=== PATIENT | female | born 1985 | race African-American/Black ===

== ENCOUNTER 2018-08-12 18:49 | Observation (INO) | payer OTHER ==
[~2018-08-12] VITALS: Ht 172.7 cm; Wt 62.0 kg
[~2018-08-12 18:49] MED LIST: NITR-58 PO; PHEN-537 PO
[2018-08-12] MEDS ORDERED: HYDROCODONE/APAP (5/325) TAB PO PRN (19:00)
[2018-08-12] MEDS ORDERED: NACL 0.9% 3 ML SYG IV SCH (19:00)
[2018-08-12] MEDS ORDERED: morphine 2 MG INJ IV PRN (19:00)
[2018-08-12] MEDS ORDERED: ONDANSETRON 4 MG INJ IV PRN (19:00)
[2018-08-12] MEDS ORDERED: ACETAMINOPHEN 325 MG TAB PO PRN (19:00)
--- NOTE | 2018-08-12 19:07 | ERD ---
ER Documentation Chief Complaint Chief Complaint HPI This is a 33-year-old female who presents as a transfer from [facility] for bullous pemphigoid, which is been going on for 1 week, PMD has been treating her as an outpatient with hydrocortisone, Pepcid, prednisone, Benadryl and permethrin. She has not had a fever, no shortness of breath, ROS All systems reviewed and are negative except as per history of present illness. Medications Home Meds Active Scripts Phenazopyridine Hcl* (Pyridium*) 100 Mg Tab, 100 MG PO TID PRN for URINARY PAIN, #8 TAB Prov:DIANA FONTANEZ NP 03/05/16 Nitrofurantoin Monohyd Macrocr* (Macrobid*) 100 Mg Capsr, 100 MG PO BID for 5 Days, CAP Prov:DIANA FONTANEZ NP 03/05/16 Allergies Allergies: Coded Allergies: No Known Allergy (Unverified , 03/05/16) PMhx/Soc History of Surgery: No Anesthesia Reaction: No Hx Neurological Disorder: No Hx Respiratory Disorders: Yes (ASTHMA) Hx Cardiac Disorders: No Hx Psychiatric Problems: No Hx Miscellaneous Medical Probl: Yes Hx Alcohol Use: Yes Hx Substance Use: No Hx Tobacco Use: Yes Physical Exam Physical Exam Const: No acute distress Head: Atraumatic Eyes: Normal Conjunctiva ENT: Normal External Ears, Nose and Mouth. Neck: Full range of motion. No meningismus. Resp: Clear to auscultation bilaterally Cardio: Regular rate and rhythm, no murmurs Abd: Soft, non tender, non distended. Normal bowel sounds Skin: Multiple areas of peeling noted over chest and back, as well as the upper extremities. Back: No midline or flank tenderness Ext: No cyanosis, or edema Neur: Awake and alert Psych: Normal Mood and Affect Procedures/MDM This is a 33-year-old female presents as a transfer for admission for bullous pemphigoid, patient arrives afebrile and nontoxic-appearing, she received a dose of steroids at about 8:30 AM. Chem panel was reviewed overall unremarkable with sodium 139, potassium 4, chloride 103, CO2 27, BUN 16, creatinine 1.72, glucose 97, LFTs were all unremarkable. Her CBC showed: White count 7.88 hemoglobin 12.3, hematocrit 86.1 platelet count 318., Urinalysis was negative. Patient will be admitted to Dr. Calixto. Departure Diagnosis: Primary Impression: Rash Additional Impression: Bullous pemphigoid Condition: Stable KODY MIJARES MD Aug 12, 2018 19:07
[2018-08-12] MEDS ORDERED: DIPHENHYDRAMINE 50 MG INJ IV PRN (19:30)
[2018-08-12 22:12] VITALS: Ht 172.7 cm; Wt 62.0 kg
--- NOTE | 2018-08-12 22:12 | NUR ---
PATIENT ARRIVED TO THE UNIT AT THIS TIME VIA GURNEY . PATIENT ALERT AND ORIENTED X 4 . V/S STABLE . DENIES ANY PAIN / DISCOMFORT AT THIS TIME . ORIENTED PATIENT TO THE ENVIRONMENT . CALL LIGHTS WITHIN REACH . BED IN LOW POSITION . INSTRUCTED PATIENT TO USE CALL LIGHTS FOR ASSISTANCE . PATIENT VERBALIZED UNDERSTANDING . SKIN ASSESSMENT AND PHOTOS TAKEN PER PROTOCOL. ADMISSION ORDERS NOTED AND CARRIED OUT . WILL CONTINUE TO MONITOR .
[2018-08-12 22:30] VITALS: BP 114/62; PULSE 70; RESP 18
[2018-08-12] MEDS: FAMOTIDINE 20 MG TAB PO SCH (22:38)
--- NOTE | 2018-08-12 23:56 | HP ---
Date/Time of Note Date/Time of Note DATE: 08/12/18 TIME: 23:56 Assessment/Plan VTE Prophylaxis SCD applied (from Nsg): Yes Pharmacological prophylaxis: NA/contraindicated Pharm contraindication: low risk/ambulating Lines/Catheters IV Catheter Type (from Nrsg): Saline Lock Urinary Cath still in place: No Assessment/Plan Hospital Course This is a 33-year-old female being admitted to the [facility] floor for: #1 diffuse maculopapular rash: Differential diagnosis: Drug reaction versus scabies versus TEN versus other. This possibly could be a reaction to ciprofloxacin, at the current time I put this on her allergy list. Labs appear unremarkable to current time, will check a urinalysis and check for urine eosinophils. ESR is within normal values, CRP is slightly elevated 1.5. Will treat with high-dose Solu-Medrol 1000 mg IV times 3 days, topical steroids. Await further blood work results. Monitor closely for any mucosal involvement in which case he likely would be prudent for the patient be transferred to higher level of care where she did have a formal dermatologic evaluation. I did speak with the briefcase sewer through [facility] who stated that a referral had apparently been generated for dermatology however the patient had no knowledge of this. I do feel she will benefit from a dermatologic evaluation in which case we will need to see if we can obtain one here and if not she may need to be transferred to a different facility. Patient though it does appear stable at the current time. PRN Benadryl and famotidine #2 normocytic anemia: No signs of bleeding at the current time, follow-up with outpatient PCP #3 DVT GI prophylaxis: SCDs, famotidine Further treatment strategy will be implemented as per the clinical course. Result Diagram: 08/12/18214708/12/182147 Results 24hrs Laboratory Tests Test 08/12/18 21:45 08/12/18 21:48 Erythrocyte Sedimentation Rate 12 White Blood Count 6.0 Red Blood Count 4.25 Hemoglobin 11.7 L Hematocrit 36.5 L Mean Corpuscular Volume 85.9 Mean Corpuscular Hemoglobin 27.5 L Mean Corpuscular Hemoglobin Concent 32.1 Red Cell Distribution Width 13.6 Platelet Count 332 Mean Platelet Volume 9.3 Immature Granulocytes % 0.300 Neutrophils % 86.4 H Lymphocytes % 10.4 L Monocytes % 2.7 Eosinophils % 0.0 Basophils % 0.2 Nucleated Red Blood Cells % 0.0 Immature Granulocytes # 0.020 Neutrophils # 5.2 Lymphocytes # 0.6 L Monocytes # 0.2 L Eosinophils # 0.0 Basophils # 0.0 Nucleated Red Blood Cells # 0.0 Sodium Level 139 Potassium Level 4.6 Chloride Level 101 Carbon Dioxide Level 26 Anion Gap 12 Blood Urea Nitrogen 11 Creatinine 0.51 Est Glomerular Filtrat Rate mL/min > 60 Glucose Level 122 Calcium Level 9.6 Total Bilirubin 0.0 L Direct Bilirubin 0.00 Indirect Bilirubin 0.0 Aspartate Amino Transf (AST/SGOT) 24 Alanine Aminotransferase (ALT/SGPT) 12 L Alkaline Phosphatase 50 C-Reactive Protein 1.5 H Total Protein 8.2 H Albumin 4.5 Globulin 3.70 H Albumin/Globulin Ratio 1.21 HPI/ROS Admit Date/Time Admit Date/Time Aug 12, 2018 at 18:58 Hx of Present Illness Rash times 1 week worsening This is a 33-year-old female with no past medical history who originally presented to [facility] with a skin eruption all over her body. Patient was subsequently transferred to [facility] secondary insurance purposes. Patient reports that approximately 1 week ago she all of a sudden developed a rash around her torso and her fingers. The rash started out as pinkish lesions and then became purple in various sizes and it was extremely itchy. She went to see urgent care/primary care physician who thought it was scabies and patient was given a treatment of permethrin. The rash continued to spread and get worse and she again saw medical advice and received another treatment of permethrin followed by prednisone Benadryl and famotidine. On approximately she started noticing that the rash ended up going all over her body. She denies any bleeding or any sloughing of the skin. Denies any fevers chest pain or shortness of breath or joint pains. Today at the transfer facility she did receive a dose of IV steroids which she does state he has helped with her itching. She does report using tampons however at the current time she is not using any. She does live with her partner he does not have any of the similar symptoms or rash. She has only been with him over the last 2 years. She denies any vaginal discharge or dysuria. No recent travel. No recent contact with animals. She did move to a new apartment over the last month or 2 and she reports that it is clean. She does report that approximately 2 weeks ago she was being treated with ciprofloxacin for urinary tract infection. Allergies: Possibly ciprofloxacin Medications: Permethrin, prednisone, Benadryl, famotidine ROS Const: As per HPI Eyes : No pain discharge or redness or change in visual acuity ENT: No pain, sore throat, congestion, congestion, dysphagia or discharge Respiratory: No shortness of breath, cough, sputum, wheezing, or pleuritic pain Cardiovascular: No chest pain, palpitation, PND, or edema GI : no change in appetite, abdominal pain, nausea, vomiting, diarrhea, constipation, or change in the color his stool Genitourinary: No dysuria, hematuria, flank pain , discharge or CVA tenderness Musculoskeletal: No joint pain, back pain, neck pain, restricted range of motion in neck or joints Skin: As per HPI Neuro: No headache, dizziness, syncope, seizure, focal weakness Endocrine: No polyuria, polydipsia, temperature intolerance Psych: No hallucination, depression, anxiety or suicidal ideation PMH/Family/Social Past Medical History Medical History: no pertinent history Medications Current Medications IV Flush (NS 3 ml) 3 ml PER PROTOCOL IV ; Start 08/12/18 at 19:00 Ondansetron HCl (Zofran Inj) 4 mg Q6H PRN IV NAUSEA/VOMITING; Start 08/12/18 at 19:00 Acetaminophen (Tylenol Tab) 650 mg Q6H PRN PO .PAIN 1-3 OR TEMP; Start 08/12/18 at 19:00 Acetaminophen/ Hydrocodone Bitart (Bonita (5/325)) 1 tab Q6H PRN PO .MOD PAIN 4- 6; Start 08/12/18 at 19:00 Morphine Sulfate (morphine) 2 mg Q4H PRN IV .SEVERE PAIN 7-10; Start 08/12/18 at 19:00 Famotidine (Pepcid) 20 mg Q12 PO Last administered on 08/12/18at 22:38; Admin Dose 20 MG; Start 08/12/18 at 21:00 Diphenhydramine HCl (Benadryl) 25 mg Q6H PRN IV itching; Start 08/12/18 at 19:30 Clobetasol Propionate (Temovate 0.05% Cr) 1 applic BID TOP ; Start 08/12/18 at 21:00 Methylprednisolone Sodium Succinate 1000 mg/Dextrose 50 ml @ 100 mls/hr DAILY IVPB ; Start 08/13/18 at 09:00; Stop 08/16/18 at 08:59 Coded Allergies: ciprofloxacin (Verified Allergy, Severe, 08/12/18) Past Surgical History Past Surgical Hx: no surgical history Family History Significant Family History: no pertinent family hx Social History Alcohol Use: none Smoking Status: Never smoker Drug Use: none Exam/Review of Systems Vital Signs Vitals Vital Signs Date Temp Pulse Resp B/P (MAP) Pulse Ox O2 O2 Flow FiO2 Time Delivery Rate 08/12/18 66 19 113/64 100 Room Air 21:50 (80) 08/12/18 99.0 19:00 Exam Exam General: Patient is a pleasant female currently sitting upright in bed in no acute distress HEENT: Atraumatic, normocephalic. The pupils are equal, round and reactive. Extraocular motor are intact, no oral lesions noted Neck: Supple with full range of motion. No rigidity or meningismus Chest: Nontender Lungs: Clear to auscultation bilaterally no crackles rales or wheezing Heart: Normal S1-S2, Regular rhythm and rate. No murmur, S3, or S4 Abdomen: Soft , nontender, nondistended , bowel sounds are present. No guarding no rebound tenderness , No masses or organomegaly. No costovertebral temporal angle mass Extremities: Normal to inspection, no edema no cyanosis Skin: Diffuse maculopapular pinkish purple rash of varying size all over the patient's body. No mucosal involvement noted. No sloughing of the skin. No bleeding noted. Genitourinary: Deferred however patient states that she has not noticed any lesions in the vaginal area. Neurologic: Normal mental status, speech normal, cranial nerves II through XII are intact, motor and sensory are intact, no focal weakness YESSI VALENTINO Aug 12, 2018 23:56
[2018-08-12] MEDS: CLOBETASOL 0.05% 15 GM CR TOP SCH (23:59)
[2018-08-13 02:00] VITALS: BP 106/60; PULSE 69; RESP 18
[2018-08-13] MEDS: FAMOTIDINE 20 MG TAB PO SCH (08:13)
[2018-08-13 08:35] VITALS: BP 103/70; PULSE 75; RESP 18
[2018-08-13] MEDS ORDERED: METHYLPRED. NA SUCC 1,000 MG in DEXTROSE 5% 50 ML IVPB SCH (09:00)
[2018-08-13] MEDS: CLOBETASOL 0.05% 15 GM CR TOP SCH (09:00)
--- NOTE | 2018-08-13 10:53 | PDOCDIS ---
Discharge Instructions CONDITION [id number] Patient Condition: [id number] Stable HOME CARE INSTRUCTIONS: [id number] Diet Instructions: [id number] Regular FOLLOW UP/APPOINTMENTS Follow-up Plan We have faxed authorization for outpatient dermatology follow-up to your insurance. Please follow-up with Dr. Shine's office in next 24-48 hours. If you see rash is getting worse with other symptoms, please go to a tertiary hospital ER like [facility] where they have inpatient dermatology speciality available. [id number] [facility] [address] [place] [id number] Office Follow-up with primary care physician in 1 week WINSTON ROD NP Aug 13, 2018 10:53
[2018-08-13] MEDS ORDERED: BEN25 PO (11:00)
[2018-08-13] MEDS ORDERED: FAMO20TA18 PO (11:00)
[2018-08-13] MEDS ORDERED: CLOT15CR6 TOP (11:00)
--- NOTE | 2018-08-13 11:11 | DS ---
Date/Time of Note Date/Time of Note DATE: 08/13/18 TIME: 11:09 Discharge Summary Admission/Discharge Info Admit Date/Time Aug 12, 2018 at 18:58 Discharge Date/Time Discharge Diagnosis 1. Diffuse maculopapular rash, unknown etiology. 2. Mild chronic anemia. Patient Condition: Stable Consults (skin biopsy) Hospital Course 33-year-old female with no significant past medical history other than recurrent Shelley UTI, presented to outside hospital with sudden onset of rashes started as a pimple-like red raised lesions on her dorsal toes and fingers which then suddenly ruptured to all over the body except face. Patient was evaluated at an urgent care center and was treated with permethrin, steroids, Benadryl and Pepcid. Apparently, her symptoms got worse and ended up been spreading 90% of the body for which she went to outside hospital emergency room where she received IV steroids and Benadryl and patient was then transferred to [facility] due to insurance capitation. Unfortunately, we do not have a body corporate manager available to see patient in-house. Patient received high-dose of IV Solu-Medrol at [facility]. Her rashes did not show any improvement. Patient was receiving Benadryl for itching. For the least, we have ordered a skin biopsy (4mm punch biopsy) at [facility] with our surgery colleague. I also ordered a varicella IgG/IgM. I also spoke with a body corporate manager Dr. Shine who kindly a greed to see patient in his clinic for which I had instructed our director case to fax authorization to her IPA. Will defer any antibiotics or antiviral at this time since diagnosis is uncertain. I communicated this to the patient and patient verbalized instructions. At this time, her rashes remain intact with no evidence of bleeding and remains at baseline. She is also feeling comfortable and wanting to be discharged with a follow-up dermatology clinic. As such, we will discharge patient on combination clotrimazole/betamethasone cream, prednisone and Benadryl for itching. Defer systemic steroid to body corporate manager if indicated. I have also instructed the patient and family to seek medical attention at a tertiary care center where they have dermatology inpatient service available in the event that if the rashes get worse before she get to a body corporate manager office. Approximately 60 minutes was spent on coordinating the discharge on this patient. Patient was seen in collaboration with . Home Meds Active Scripts Clotrimazole-Betamethasone Diprop (Clotrimazole-Betamethasone Diprop) 15 Gm Cream.gm., 1 APPLIC TOP BID, #1 TUB Prov:ROD,WINSTON V[employer] REPAIRER 08/13/18 Diphenhydramine Hcl* (Benadryl*) 25 Mg Cap, 25 MG PO Q6H PRN for ITCHING, #30 CAP Prov:ROD,WINSTON V[employer]SEM[employer] REPAIRER 08/13/18 Famotidine* (Famotidine*) 20 Mg Tablet, 20 MG PO Q12, #60 TAB Prov:ROD,WINSTON V. [employer]SEM[employer] REPAIRER 08/13/18 Phenazopyridine Hcl* (Pyridium*) 100 Mg Tab, 100 MG PO TID PRN for URINARY PAIN, #8 TAB Prov:DIANA FONTANEZ NP 03/05/16 Nitrofurantoin Monohyd Macrocr* (Macrobid*) 100 Mg Capsr, 100 MG PO BID for 5 Days, CAP Prov:DIANA FONTANEZ NP 03/05/16 Follow-up Plan We have faxed authorization for outpatient dermatology follow-up to your insurance. Please follow-up with Dr. Shine's office in next 24-48 hours. If you see rash is getting worse with other symptoms, please go to a tertiary hospital ER like [facility] where they have inpatient dermatology speciality available. [id number] [facility] [address] [place], [place] [id number] Office Follow-up with primary care physician in 1 week Primary Care Provider Not On Staff Doctor Pending Labs Laboratory Tests Test 08/12/18 21:45 08/12/18 21:48 08/13/18 04:54 08/13/18 07:30 Erythrocyte 12 mm/Hr (0-20) Sedimentation Rate White Blood 6.0 10.1 Count 10^3/ul (4.8-1 10^3/ul (4.8-1 0.8) 0.8) Red Blood 4.25 4.06 Count 10^6/ul (4.20- 10^6/ul (4.20- 5.40) 5.40) Hemoglobin 11.7 11.3 g/dl (12.0-16. g/dl (12.0-16. 0) 0) Hematocrit 36.5 34.6 % (37.0-47.0) % (37.0-47.0) Mean 85.9 85.2 Corpuscular fl (82.0-101.0 fl (82.0-101.0 Volume ) ) Mean 27.5 27.8 Corpuscular pg (29.0-33.0) pg (29.0-33.0) Hemoglobin Mean 32.1 32.7 Corpuscular g/dl (32.0-37. g/dl (32.0-37. Hemoglobin Conc 0) 0) ent Red Cell 13.6 13.5 Distribution % (11.5-14.5) % (11.5-14.5) Width Platelet Count 332 308 10^3/UL (140-4 10^3/UL (140-4 15) 15) Mean Platelet 9.3 9.5 Volume fl (7.4-10.4) fl (7.4-10.4) Immature 0.300 0.500 Granulocytes % % (0.001-0.429 % (0.001-0.429 ) ) Neutrophils % 86.4 74.4 % (39.0-77.0) % (39.0-77.0) Lymphocytes % 10.4 16.1 % (15.0-51.0) % (15.0-51.0) Monocytes % 2.7 7.8 % (0.0-11.0) % (0.0-11.0) Eosinophils % 0.0 1.0 % (0.0-7.0) % (0.0-7.0) Basophils % 0.2 0.2 % (0.0-2.0) % (0.0-2.0) Nucleated Red 0.0 0.0 Blood Cells % /100WBC (0.0-0 /100WBC (0.0-0 .0) .0) Immature 0.020 0.050 Granulocytes # 10^3/ul (0.0-0 10^3/ul (0.0-0 .031) .031) Neutrophils # 5.2 7.5 10^3/ul (1.6-7 10^3/ul (1.6-7 .5) .5) Lymphocytes # 0.6 1.6 10^3/ul (0.8-2 10^3/ul (0.8-2 .9) .9) Monocytes # 0.2 0.8 10^3/ul (0.3-0 10^3/ul (0.3-0 .9) .9) Eosinophils # 0.0 0.1 10^3/ul (0.0-0 10^3/ul (0.0-0 .5) .5) Basophils # 0.0 0.0 10^3/ul (0.0-0 10^3/ul (0.0-0 .1) .1) Nucleated Red 0.0 0.0 Blood Cells # 10^3/ul (0.0-0 10^3/ul (0.0-0 .0) .0) Sodium Level 139 138 mmol/L (135-14 mmol/L (135-14 4) 4) Potassium 4.6 3.9 Level mmol/L (3.5-5. mmol/L (3.5-5. 1) 1) Chloride Level 101 102 mmol/L (97-110 mmol/L (97-110 ) ) Carbon Dioxide 26 26 Level mmol/L (21-31) mmol/L (21-31) Anion Gap 12 (5-13) 10 (5-13) Blood Urea 11 13 Nitrogen mg/dl (7-20) mg/dl (7-20) Creatinine 0.51 0.52 mg/dl (0.44-1. mg/dl (0.44-1. 00) 00) Est Glomerular > 60 > 60 Filtrat mL/min (>60) mL/min (>60) Rate mL/min Glucose Level 122 82 mg/dl (70-220) mg/dl (70-220) Calcium Level 9.6 9.6 mg/dl (8.4-10. mg/dl (8.4-10. 2) 2) Total 0.0 0.0 Bilirubin mg/dl (0.2-1.3 mg/dl (0.2-1.3 ) ) Direct 0.00 0.00 Bilirubin mg/dl (0.00-0. mg/dl (0.00-0. 20) 20) Indirect 0.0 0.0 Bilirubin mg/dl (0-1.1) mg/dl (0-1.1) Aspartate Amino 24 22 Transf (AST/SGO IU/L (15-46) IU/L (15-46) T) Alanine 12 17 Aminotransferas IU/L (13-69) IU/L (13-69) e (ALT/SGPT) Alkaline 50 47 Phosphatase IU/L (42-121) IU/L (42-121) C-Reactive 1.5 Protein mg/dl (0.0-0.9 ) Total Protein 8.2 7.4 g/dl (6.1-8.1) g/dl (6.1-8.1) Albumin 4.5 4.0 g/dl (3.3-4.9) g/dl (3.3-4.9) Globulin 3.70 3.40 g/dl (1.3-3.2) g/dl (1.3-3.2) Albumin/Globuli 1.21 1.17 n Ratio Serum HCG, NEGATIVE (NEGA Qualitative TIVE) Magnesium 2.2 Level mg/dl (1.7-2.5 ) Urine Color YELLOW (YELLOW ) Urine Clarity CLEAR (CLEAR) Urine pH 6.0 (5.0-9.0) Urine Specific 1.025 (1.003-1 [place] .030) Urine Ketones NEGATIVE mg/dL (NEGATIV E) Urine Nitrite NEGATIVE mg/dL (NEGATIV E) Urine NEGATIVE Bilirubin mg/dL (NEGATIV E) Urine NEGATIVE Urobilinogen mg/dL (NEGATIV E) Urine Leukocyte NEGATIVE Adrienne/u Esterase l Urine 0.0 % (0-1.9) Eosinophils % Urine NEGATIVE Hemoglobin mg/dL (NEGATIV E) Urine Glucose NEGATIVE mg/dL (NEGATIV E) Urine Total NEGATIVE Protein mg/dl (NEGATIV E) WINSTON ROD NP Aug 13, 2018 11:11
--- NOTE | 2018-08-13 11:15 | NUR ---
REPORT GIVEN TO MARTINE.
--- NOTE | 2018-08-13 11:23 | NUR ---
CM CONSULT FOR DERMATOLOGY UP. ORDER FAXED TO GHADA LOPEZ DC PATENT AGENT [phone] FOR AUTHORIZATION, SPOKE TO GHADA, AUTHORIZATION WILL BE FAXED TO DR. WASHINGTON'S OFFICE. FAXED TO DR. WASHINGTON'S OFFICE CONTACT LENS BLOCKER AND CUTTER CONTRACTED WITH JOHN [phone] SPOKE TO JAIRO NOTIFIED HER AUTHORIZATION REQUEST FAXED TO JAIRO URRUTIA WILL CALL PATIENT WHEN SHE GET THE AUTHORIZATION FOR APPOINTMENT. SPOKE TO PATIENT ALERT AND ORIENTED , PROVIDED HER TEL # OF DR. WASHINGTON AND TO CALL TOMORROW 08/14/18 TO UP APPOINTMENT. Addendum: 08/13/18 at 1133 by SHIVAM ARAUZ CM Amended: Links added.
[2018-08-13] MEDS ORDERED: LIDOCAINE 2%/EPI (MDV) 20ML INJ INJ ONE (12:30)
--- NOTE | 2018-08-13 12:37 | CONS ---
Assessment/Plan Assessment/Plan Assessment/Plan (Daily) 1. Maculovesicular rash of unknown etiology: med induced vs new skin oil vs other - punch biopsy -local care -fu w dermatology as outpatient 2. Itching -antipruritics as needed (orals, topical) 3. Hypochromic anemia: -monitor and tx as needed -further workup per pcp Thank you. Patient seen and examined in collaboration with Dr. Augustine Cuenca. Consultation Date/Type/Reason Admit Date/Time Aug 12, 2018 at 18:58 Date of Consultation: Aug 13, 2018 Type of Consult surgical Reason for Consultation diffuse rash Requesting Provider: WINSTON ROD NP Date/Time of Note DATE: 08/13/18 TIME: 12:09 Hx of Present Illness Melissa Frank is a 33 yo woman with past medical history of right second toe surgery, who presented to the hospital with complaints of diffuse maculovesicular rash that began approximately 1 week ago. Initially, the rash began as small, pink and pinpoint on her hands and torso. She then sought care in urgent care, was treated to scabies and given prednisolone. The rash then spread to her legs, arms and back. She then saw her pcp who once again gave her scabies treatment and additional steroids. She finally sought care in the ED. Associated symptoms include chills. She reports using a new apricot oil and having recently finished ciprofloxacin treatment for uti 1 week prior to rash. She denies any other new lotions, detergents, perfumes. She denies fevers, congested cough, vomiting, diarrhea, sz. Dermatology has agreed to see her as an outpatient, however they are requesting a skin biopsy. Gen surgery was asked for biopsy. 12 point ros was performed and is negative except as stated in hpi. Past Medical History Medical History: no pertinent history Home Meds Active Scripts Clotrimazole-Betamethasone Diprop (Clotrimazole-Betamethasone Diprop) 15 Gm C ream.gm., 1 APPLIC TOP BID, #1 TUB Prov:WINSTON ROD V. [employer] 08/13/18 Diphenhydramine Hcl* (Benadryl*) 25 Mg Cap, 25 MG PO Q6H PRN for ITCHING, #30 CAP Prov:WINSTON ROD V. [employer] 08/13/18 Famotidine* (Famotidine*) 20 Mg Tablet, 20 MG PO Q12, #60 TAB Prov:WINSTON ROD V. [employer] 08/13/18 Phenazopyridine Hcl* (Pyridium*) 100 Mg Tab, 100 MG PO TID PRN for URINARY PAIN, #8 TAB Prov:DIANA FONTANEZVicki [employer] 03/05/16 Nitrofurantoin Monohyd Macrocr* (Macrobid*) 100 Mg Capsr, 100 MG PO BID for 5 Days, CAP Prov:DIANA FONTANEZ Sean [employer] 03/05/16 Medications Current Medications IV Flush (NS 3 ml) 3 ml PER PROTOCOL IV ; Start 08/12/18 at 19:00 Ondansetron HCl (Zofran Inj) 4 mg Q6H PRN IV NAUSEA/VOMITING; Start 08/12/18 at 19:00 Acetaminophen (Tylenol Tab) 650 mg Q6H PRN PO .PAIN 1-3 OR TEMP; Start 08/12/18 at 19:00 Acetaminophen/ Hydrocodone Bitart (Oliver (5/325)) 1 tab Q6H PRN PO .MOD PAIN 4- 6; Start 08/12/18 at 19:00 Morphine Sulfate (morphine) 2 mg Q4H PRN IV .SEVERE PAIN 7-10; Start 08/12/18 at 19:00 Famotidine (Pepcid) 20 mg Q12 PO Last administered on 08/13/18at 08:13; Admin Dose 20 MG; Start 08/12/18 at 21:00 Diphenhydramine HCl (Benadryl) 25 mg Q6H PRN IV itching; Start 08/12/18 at 19:30 Clobetasol Propionate (Temovate 0.05% Cr) 1 applic BID TOP Last administered on 08/13/18at 09:00; Admin Dose 1 APPLIC; Start 08/12/18 at 21:00 Methylprednisolone Sodium Succinate 1000 mg/Dextrose 50 ml @ 100 mls/hr DAILY IVPB Last administered on 08/13/18at 11:04; Admin Dose 100 MLS/HR; Start 08/13/18 at 09:00; Stop 08/16/18 at 08:59 Allergies: Coded Allergies: ciprofloxacin (Verified Allergy, Severe, 08/12/18) Past Surgical History as above Social History Alcohol Use: none Smoking Status: Never smoker Drug Use: none Exam/Review of Systems Exam Vitals Vital Signs Date Temp Pulse Resp B/P (MAP) Pulse Ox O2 O2 Flow FiO2 Time Delivery Rate 08/13/18 98.1 75 18 103/70 97 Room Air 08:35 (81) Intake and Output 08/12/18 08/12/18 08/13/18 1515:00 23:00 07:00 IntakeIntake Total 250 ml BalanceBalance 250 ml Constitutional: alert, oriented, well developed Psych: nl mood/affect Head: normocephalic, atraumatic Eyes: nl conjunctiva, EOMI, nl lids, nl sclera ENMT: nl external ears & nose, nl lips & teeth, nl nasal mucosa & septum, mucosa pink and moist Neck: supple, non-tender; No jvd Respiratory: normal air movement; No congested cough, No labored breathing Cardiovascular: regular rate and rhythm, nl pulses; No edema Gastrointestinal: soft, non-tender; No distended Genitourinary - Female: nl external genitalia Musculoskeletal: nl extremities to inspection, nl gait and stance Extremities: normal pulses Neurological: nl mental status, nl speech, nl strength Skin: rash or lesions (maculovesicular rash, some open areas, min jaime-lesion erythema) Results Result Diagram: 08/13/18 0454 08/13/18 0454 Results 24hrs Laboratory Tests Test 08/12/18 21:45 08/12/18 21:48 08/13/18 04:54 08/13/18 07:30 Erythrocyte 12 Sedimentation Rate White Blood Count 6.0 10.1 # Red Blood Count 4.25 4.06 L Hemoglobin 11.7 L 11.3 L Hematocrit 36.5 L 34.6 L Mean Corpuscular 85.9 85.2 Volume Mean Corpuscular 27.5 L 27.8 L Hemoglobin Mean Corpuscular 32.1 32.7 Hemoglobin Concent Red Cell 13.6 13.5 Distribution Width Platelet Count 332 308 Mean Platelet Volume 9.3 9.5 Immature 0.300 0.500 H Granulocytes % Neutrophils % 86.4 H 74.4 Lymphocytes % 10.4 L 16.1 Monocytes % 2.7 7.8 Eosinophils % 0.0 1.0 Basophils % 0.2 0.2 Nucleated Red Blood 0.0 0.0 Cells % Immature 0.020 0.050 H Granulocytes # Neutrophils # 5.2 7.5 Lymphocytes # 0.6 L 1.6 Monocytes # 0.2 L 0.8 Eosinophils # 0.0 0.1 Basophils # 0.0 0.0 Nucleated Red Blood 0.0 0.0 Cells # Sodium Level 139 138 Potassium Level 4.6 3.9 Chloride Level 101 102 Carbon Dioxide Level 26 26 Anion Gap 12 10 Blood Urea Nitrogen 11 13 Creatinine 0.51 0.52 Est Glomerular > 60 > 60 Filtrat Rate mL/min Glucose Level 122 82 # Calcium Level 9.6 9.6 Total Bilirubin 0.0 L 0.0 L Direct Bilirubin 0.00 0.00 Indirect Bilirubin 0.0 0.0 Aspartate Amino 24 22 Transf (AST/SGOT) Alanine 12 L 17 Aminotransferase (AL T/SGPT) Alkaline Phosphatase 50 47 C-Reactive Protein 1.5 H Total Protein 8.2 H 7.4 Albumin 4.5 4.0 Globulin 3.70 H 3.40 H Albumin/Globulin 1.21 1.17 Ratio Serum HCG, NEGATIVE Qualitative Magnesium Level 2.2 Urine Color YELLOW Urine Clarity CLEAR Urine pH 6.0 Urine Specific 1.025 Streeter Urine Ketones NEGATIVE Urine Nitrite NEGATIVE Urine Bilirubin NEGATIVE Urine Urobilinogen NEGATIVE Urine Leukocyte NEGATIVE Esterase Urine Eosinophils % 0.0 Urine Hemoglobin NEGATIVE Urine Glucose NEGATIVE Urine Total Protein NEGATIVE Medications Medication Current Medications IV Flush (NS 3 ml) 3 ml PER PROTOCOL IV ; Start 08/12/18 at 19:00 Ondansetron HCl (Zofran Inj) 4 mg Q6H PRN IV NAUSEA/VOMITING; Start 08/12/18 at 19:00 Acetaminophen (Tylenol Tab) 650 mg Q6H PRN PO .PAIN 1-3 OR TEMP; Start 08/12/18 at 19:00 Acetaminophen/ Hydrocodone Bitart (Oliver (5/325)) 1 tab Q6H PRN PO .MOD PAIN 4- 6; Start 08/12/18 at 19:00 Morphine Sulfate (morphine) 2 mg Q4H PRN IV .SEVERE PAIN 7-10; Start 08/12/18 at 19:00 Famotidine (Pepcid) 20 mg Q12 PO Last administered on 08/13/18at 08:13; Admin Dose 20 MG; Start 08/12/18 at 21:00 Diphenhydramine HCl (Benadryl) 25 mg Q6H PRN IV itching; Start 08/12/18 at 19:30 Clobetasol Propionate (Temovate 0.05% Cr) 1 applic BID TOP Last administered on 08/13/18at 09:00; Admin Dose 1 APPLIC; Start 08/12/18 at 21:00 Methylprednisolone Sodium Succinate 1000 mg/Dextrose 50 ml @ 100 mls/hr DAILY IVPB Last administered on 08/13/18at 11:04; Admin Dose 100 MLS/HR; Start 08/13/18 at 09:00; Stop 08/16/18 at 08:59 LILY ONTIVEROS NP Aug 13, 2018 12:28
--- NOTE | 2018-08-13 12:45 | NUR ---
NURSE NOTE: Received patient report from Naima at 1140. Pt is AXOX4. Denies any pain at this time. No signs of distress. Pt aware regarding skin biopsy and plan of care. Family at bedside. Spoke to ADRIAN Costa regarding if she wants to patient to still have the skin scraping for scabies, she states no since patient already have treatment for scabies.
--- NOTE | 2018-08-13 13:57 | OPR ---
Date/Time of Note Date/Time of Note DATE: 08/13/18 TIME: 13:56 Operative Report Procedure Date: Aug 13, 2018 Operation/Procedure Performed Left upper extremity skin punch biopsy Local anesthetic injection. Surgeon see signature line Transfusion none Grafts/Implants none Complications none RAMONA ONEILL MD Aug 13, 2018 13:57
[2018-08-13 14:27] VITALS: BP 116/58; PULSE 89; RESP 18
--- NOTE | 2018-08-13 15:30 | NUR ---
DISCHARGE NOTE: NO ACUTE CHANGES. PT IS AXOX4. NO SIGNS OF DISTRESS. DISCHARGE INSTRUCTIONS PROVIDED BY IDA MOURA. PT TOLERATED SKIN BIOPSY WELL. NO BLEEDING NOTED. DENIES ANY PAIN. SPECIMEN WAS SENT TO THE PATHOLOGY.
[2018-08-16 23:00] LABS: VARICELLA-ZOSTER VIRUS AB IgM 0.41
== END 2018-08-13 15:30 | disposition home or self-care (01) ==
LOC: E/R 18:49 → PP2 18:58
PROVIDERS: ADMIT Internal Medicine; ATTEND Internal Medicine
DX: L12.0 Bullous pemphigoid (principal); D53.9 Nutritional anemia, unspecified
CPT/HCPCS: 71045; 80053; 81003; 83735; 84703; 85025; 85651; 86140; 88305; 89190; J2930; Z7500; Z7502; Z7610; G0378